=== PATIENT | female | born 2000 | race Caucasian/White ===

== ENCOUNTER 2020-12-16 14:39 | Outpatient (REF) | payer MEDICAID, SELFPAY | END 2020-12-16 14:40 | disposition home or self-care (01) | LOC: HO.LAB 14:39 | PROVIDERS: Visit Provider Internal Medicine | DX: Z20.822 Contact with and (suspected) exposure to COVID-19 (principal) | CPT/HCPCS: C9803; U0003; U0005 ==

== ENCOUNTER 2021-03-18 17:00 | Emergency (ER) | payer OTHER, SELFPAY ==
[2021-03-18 17:11] VITALS: BP 128/89; PULSE 87; RESP 18; TEMP 36.9; O2SAT 98; BMI 26.7
--- NOTE | 2021-03-18 18:39 | ED.GENADULT ---
HPI - General Adult General Chief complaint: General Medical Stated complaint: painful breast stop monday Time Seen by Provider: 03/18/21 18:31 Source: patient Mode of arrival: ambulatory Limitations: no limitations History of Present Illness HPI narrative: 20-year-old female with no known medical history presents to the emergency department with bilateral breast pain X3 days and progressively worsening. She states that she has a 4-month-old at home who was being breast-fed, but the infant got taken away on Monday by [facility]. She states that the last time she was able to breast-feed was Monday. Since Monday she has been having breast engorgement, and she states her breasts have been milking, and they are painful. She states she is unable to use a pump, because this has never worked for her in the past, and she was advised not to use 1 by her OBGYN. She denies fevers, chills, skin changes overlying bilateral breasts, nausea, vomiting, abdominal pain, chest pain, shortness of breath. Onset (ago): day(s) (3) Location: chest (bilateral breasts ) Radiation: non-radiation Severity: moderate Severity scale (1-10): 6 Quality: constant Pain Consistency: constant Relieving factors: none Exacerbating factors: none Associated symptoms: denies other symptoms Treatments prior to arrival: none Related Data Previous Rx's Medication Instructions Recorded oxycodone 5 mg capsule 5 mg PO Q8H PRN #6 cap 03/18/21 Allergies Allergy/AdvReac Type Severity Reaction Status Date / Time No Known Allergies Allergy Verified 03/18/21 18:08 Review of Systems Review of Systems: Constitutional : No Weight loss, No Fever, No Chills, No Night Sweats, No Fatigue, No Malaise ENT/Mouth : No Hearing loss, No Ear Pain, No Nasal Congestion, No Sinus Pain, No Hoarseness, No sore throat, No Rhinorrhea, No Swallowing Difficulty Eyes: No Eye Pain, No Swelling, No Redness, No Foreign Body, No Discharge, No Vision Changes Cardiovascular : No Chest Pain, No SOB, No Dyspnea on Exertion, No Orthopnea, No Edema, No Palpitations Respiratory : No Cough, No Sputum, No Wheezing, No Smoke Exposure, No Dyspnea Gastrointestinal : No Nausea, No Vomiting, No Diarrhea, No Constipation, No abdominal Pain, No Hematochezia, No Melena Genitourinary : no irregular bleeding, No Dysuria, No Urinary Frequency, No Hematuria, No Urinary Incontinence, No Urgency, No Flank Pain, No Urinary Flow Changes, No Hesitancy Breast: + bilateral breast pain, and engorgement Musculoskeletal : No joint pain, No Myalgias, No Joint SwellingSkin : No Skin Lesions, No rash Neuro : No Weakness, No Numbness, No Paresthesias, No Loss of Consciousness, No Dizziness, No Headache [facility] Past Medical History Attestation statement: The following information was validated with the patient. Source: old records reviewed and nursing notes reviewed Social History Social History Advance Directives: No Advance Directives Information Provided: No Physical Exam Vital Signs: Vital Signs: Last Vital Signs Temp 98.4 F 03/18/21 17:11 Pulse 87 03/18/21 17:11 Resp 18 03/18/21 17:11 BP 128/89 03/18/21 17:11 Pulse Ox 98 03/18/21 17:11 Body Mass Index 26.7 Vital signs are stable patient is afebrile Appearance: Alert. Oriented X3. No acute distress. ? No accessory muscle use Head: Normal external exam. Normocephalic. Atraumatic. ? Eyes: PERRLA. EOMI. Conjunctiva and sclera normal. Eyelids normal. ? ENT: Pharynx normal. Uvula midline. Moist mucous membranes. ? No trismus noted.? No drooling noted.? No muffled voice noted. Neck: ?Soft full range of motion, no JVD CVS: ?Heart regular rate and rhythm no murmurs and rubs Respiratory: ?Breath sounds are clear to auscultation bilaterally. No wheezing or stridor.? No accessory muscle use noted. Abdomen: ?Soft nontender no rebound or guarding positive bowel sounds Skin: Skin warm and dry.? Normal skin color.? Normal skin turgor. No rashes/lesions/lacerations noted. Breast: + bilateral breast evidently engorged, no overlying skin changes, no signs of mastitis, no erythema, calor. + discomfort with palpation of bilateral breast, no milk expressed with palpation, No lumps or masses noted no lymphadenopathy noted Extremities: No lower extremity edema. ? Extremities exhibit normal range of motion.? Extremities nontender. Neuro: Oriented X 3.? No motor deficit.? No sensory deficit.? Reflexes normal Course Reevaluation(s) Reevaluation #1: This case was discussed with Dr. Mancilla who suggest discharging patient home on pain medications, encouraging patient to apply warm compresses to the area, and giving patient resources for outpatient follow-up such as a clinic, an OBGYN. Time: 18:49 Medical Decision Making MDM Narrative Medical decision making narrative: 1834 A 20-year-old female presents to the emergency department with 3 days of breast engorgement, milk production and 10/10 pain to bilateral breast. She states she stopped breast-feeding on Monday, and symptoms have been progressively worsening since then. She also states that she is unable to use a pump, and has never been able to use one. She states that her OBGYN told her not to use one. Upon physical examination bilateral breast are evidently engorged, with no overlying skin changes, no signs of mastitis, no erythema,no calor. There is discomfort with palpation of bilateral breast, but no milk expressed with palpation, No lumps or masses noted to bilateral breast. No lymphadenopathy noted. Abdomen soft nontender nondistended. Lung sounds clear bilaterally. S1-S2 appreciated free of murmurs. Vital signs are stable, patient is not tachycardic, not febrile. No concerns for infection. Plan at this time is to discharge patient home with medication for pain ([facility] reviewed). She has been encouraged to apply warm compresses to bilateral breasts. She will be provided with outpatient resources for , and referal to an OBGYN. Patient is safe for discharge home. She has been advised to return to the emergency department with new or worsening symptoms such as fevers, chills, CP, SOB or worsening pain. Critical Care Time Critical Care Time Critical Care Time: No Discharge Plan Discharge Clinical Impression: Engorged breasts Patient Disposition: Home, Self-Care Instructions: and Breast Engorgement (ED) Additional Instructions: These are phone numbers you can call where they may have clinics. As we talked about [facility] [place] [facility]?[place] [facility]?[place] [facility]?[place] You are being prescribed a narcotic medication, because you told me that you are no longer breast feeding. It is okay to take narcotic if you are not breast feeding. If you begin to breast feed again, you must pump, and dump for a few days before you begin breast-feeding again. Follow up with OBGYN and primary care provider Apply warm compresses to the area Return to the emergency department with new or worsening symptoms, or if you develop worsening pain, fevers, chills, nausea, vomiting. Prescriptions: New oxycodone 5 mg capsule 5 mg PO Q8H PRN (Reason: pain) Qty: 6 RF: 0 Referrals: Physician,None [Primary Care Provider] - 1 week John Mcdonough MD [Physician] - 1 week Stand Alone Forms: Work/School Release
== END 2021-03-18 19:03 | disposition home or self-care (01) ==
PROVIDERS: Emergency Provider Internal Medicine
DX: N64.4 Mastodynia (principal); Z79.899 Other long term (current) drug therapy
CPT/HCPCS: 99283